=== PATIENT | female | born 1945 | race Caucasian/White ===

== ENCOUNTER 2024-01-18 14:09 | Outpatient (RCR) | payer MEDICARE, OTHER, SELFPAY | END 2024-01-18 23:59 | disposition home or self-care (01) | LOC: RPT 14:09 | PROVIDERS: ATTENDING PHYSICIAN Internal Medicine | DX: M54.50 Low back pain, unspecified (principal); R26.2 Difficulty in walking, not elsewhere classified; Z73.6 Limitation of activities due to disability; G62.9 Polyneuropathy, unspecified; M79.604 Pain in right leg; R26.89 Other abnormalities of gait and mobility; M62.81 Muscle weakness (generalized) | CPT/HCPCS: 97110; 97162 ==

== ENCOUNTER 2024-01-31 13:18 | Outpatient (RCR) | payer MEDICARE, OTHER, SELFPAY | END 2024-01-31 23:59 | disposition home or self-care (01) | LOC: RPT 13:18 | PROVIDERS: ATTENDING PHYSICIAN Internal Medicine | DX: M54.50 Low back pain, unspecified (principal); R26.2 Difficulty in walking, not elsewhere classified; Z73.6 Limitation of activities due to disability; G62.9 Polyneuropathy, unspecified; M79.604 Pain in right leg; R26.89 Other abnormalities of gait and mobility; M62.81 Muscle weakness (generalized) | CPT/HCPCS: 97110 ==

== ENCOUNTER → 2024-02-25 09:45 | Outpatient (REF) | payer MEDICARE, OTHER, SELFPAY ==
[2024-02-25 11:02] LABS: Hematocrit 40.9 % (37.0-47.0); Mean Corp Hgb Conc. 31.8 g/dL (33.0-37.0); Mean Corpuscular Hgb 27.8 pg (27.0-31.0); Mean Corpuscular Volume 87.4 fL (81.0-99.0); Mean Platelet Volume 10.7 fL (7.4-10.4); Platelet Count 180 10^3/uL (130-400); Red Blood Cell Count 4.68 10^6/uL (4.20-5.40); Red Cell Dist. Width 14.9 % (11.5-14.5); White Blood Cell Count 9.2 10^3/uL (4.8-10.8)
[2024-02-25 12:46] LABS: Blood Urea Nitrogen 22 mg/dl (7-17); Calcium 9.5 mg/dl (8.4-10.2); Carbon Dioxide 27 mmol/L (22-30); Chloride 102 mmol/L (98-107); Glucose 98 mg/dl (70-99); Potassium 4.6 mmol/L (3.5-5.1); Sodium 139 mmol/L (135-145); eGFR > 60.00
== END ==
LOC: SDSPAT 09:45
PROVIDERS: ATTENDING PHYSICIAN Obstetrics & Gynecology; FAMILY PHYSICIAN Internal Medicine
DX: Z01.818 Encounter for other preprocedural examination (principal)
CPT/HCPCS: 36415; 80048; 85027; 86850; 86900; 86901

== ENCOUNTER 2024-02-29 08:39 | Emergency (ER) | payer MEDICARE, OTHER, SELFPAY ==
[2024-02-29 08:54] VITALS: BP 123/95
[2024-02-29 09:17] LABS: % Basophils 0.4 % (0-2); % Eosinophils 1.1 % (0-6); % Immature Granulocytes 0.6 % (0-0.5); % Lymphocytes 19.1 % (20.5-51.1); % Monocytes 7.4 % (1.7-9.3); % Neutrophils 71.4 % (42.2-75.2); Absolute Eosinophils 0.1 10^3/uL (0-0.7); Absolute Immature Granulocytes 0.1 10^3/uL (0-0.05); Absolute Lymphocytes 1.9 10^3/uL (1.2-3.4); Absolute Monocytes 0.7 10^3/uL (0.1-0.6); Absolute Neutrophils 7.1 10^3/uL (1.4-6.5); Hematocrit 42.8 % (37.0-47.0); Mean Corp Hgb Conc. 32.7 g/dL (33.0-37.0); Mean Corpuscular Hgb 28.3 pg (27.0-31.0); Mean Corpuscular Volume 86.6 fL (81.0-99.0); Mean Platelet Volume 9.8 fL (7.4-10.4); Nucleated Red Blood Cells % 0 %; Platelet Count 180 10^3/uL (130-400); Red Blood Cell Count 4.94 10^6/uL (4.20-5.40); Red Cell Dist. Width 14.7 % (11.5-14.5); White Blood Cell Count 9.9 10^3/uL (4.8-10.8)
[2024-02-29 09:26] LABS: Urine Albumin Trace (Neg - Trace); Urine Bilirubin Negative (Negative); Urine Character Clear (Clear); Urine Color Yellow; Urine Glucose Negative (Negative); Urine Ketone Negative (Negative); Urine Leukocyte 2+ (Negative); Urine Nitrite Negative (Negative); Urine Occult Blood Negative (Negative); Urine Urobilinogen Negative (Neg - 1+)
[2024-02-29 09:34] LABS: ALT (SGPT) 13 U/L (0-35); AST (SGOT) 20 U/L (14-36); Albumin 4.2 g/dl (3.5-5.0); Alkaline Phosphatase 82 U/L (38-126); Blood Urea Nitrogen 20 mg/dl (7-17); Carbon Dioxide 30 mmol/L (22-30); Chloride 102 mmol/L (98-107); Glucose 101 mg/dl (70-99); Potassium 4.2 mmol/L (3.5-5.1); Sodium 140 mmol/L (135-145); Total Bilirubin 0.6 mg/dl (0.2-1.3); Total Protein 6.9 g/dl (6.3-8.2); eGFR > 60.00
[2024-02-29 09:47] LABS: Urine Mucus Moderate
[2024-02-29 09:48] LABS: Urine Squamous Cell 26-30 /LPF (Few)
[2024-02-29 09:49] LABS: Urine Bacteria Moderate (Negative); Urine White Cell 16-20 /HPF (0-5)
--- NOTE | 2024-02-29 10:18 | ED.GENMED ---
History of Present Illness
<Stephanie Perera PA-C - Last Filed: 02/29/24 17:08>
General
Chief Complaint: Urinary Symptoms
Source: patient
Exam Limitations: none
Time Seen by Provider: 02/29/24 10:17
Nursing documentation reviewed up to this point in time: agreed with
History of Present Illness
History of Present Illness:
78-year-old female past medical history of A-fib, diabetes, asthma, presents to the emergency department today with concerns of low back pain, burning with urination, and vaginal itching for the past 5 days. Patient states that she went to urgent
care was diagnosed with a UTI and Bactrim was sent to the pharmacy. Patient states that she is allergic to Bactrim and will get swelling and itching. 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
her that the medication was not ready. Patient went back again and they again and said that the medication was not ready. Patient today is hoping to get a new antibiotic as she has surgery scheduled for next week. Patient states that the back
pain have been without, and is seems to be worse with movement. Patient feels that around the flank area bilaterally. Patient denies any blood in her urine. Patient denies any history of kidney stones. Patient denies any fevers or chills.
Patient states that she did have nausea yesterday but no vomiting.
Past History
<Stephanie Perera PA-C - Last Filed: 02/29/24 17:08>
Past History
ED Past Medical History: Arrthythmia (Atrial fibrillation), Asthma, GERD (Hiatal hernia), Psychiatric and Other (Prior history of DVT/PE)
ED Past Surgical History: Gynecological (Hysterectomy, rectocele repair x2) and Other (Laparoscopic hiatal hernia repair February 2022)
Social History
Tobacco: Non-smoker
Alcohol: Occasional
Drug: None
Personal:
Living: with family
Employment: Retired
Family History
Family History: Other (Noncontributory)
Review of Systems
<Stephanie Perera PA-C - Last Filed: 02/29/24 17:08>
Review of Systems
All Other Systems: ROS reviewed and negative except as documented in HPI and ROS
Phy Exam
<Stephanie Perera PA-C - Last Filed: 02/29/24 17:08>
Physical Exam
Physical Exam:
General: Patient is well appearing and in no acute distress; non-toxic
Skin: Warm and dry, no rashes or lesions
Head: Normocephalic, atraumatic
Eyes: Sclera non-icteric. EOMs intact.
Cardiac: Regular rate and rhythm, no murmurs
Peripheral Vascular: No lower extremity swelling or edema
Pulm: Normal respiratory effort, no wheezes, rales, or rhonchi
Abdomen: No abdominal tenderness
Musculoskeletal: Bilateral flank tenderness to palpation, no midline spinal tenderness to palpation
Neuro: CN II-XII intact, no focal neurologic deficits.
Psychiatric: Appropriate mood and affect.
Course
<Stephanie Perera PA-C - Last Filed: 02/29/24 17:08>
Orders/Labs/Results
Orders:
Orders
02/29/24 09:06
Complete Blood Count/With Diff Urgent
Comprehensive Metabolic Panel Urgent
Urinalysis Reflex To Culture Urgent
Date Specimen was Collected: 02/29/24
Time Specimen was Collected: 08:57
Urine Microscopic Reflex Cult Urgent
Urine Culture Urgent
GEORGE Source: U
Specimen Description:
Date Specimen was Collected: 02/29/24
Time Specimen was Collected: 08:57
02/29/24 11:01
CT Abd/pel Without Iv Or Oral Urgent
Comment:
Reason For Exam: flank pain
02/29/24 11:24
Electrocardiogram (*1) Urgent
Reason for Study: QTc Monitoring
EKG- Treatment ONCE
Abnormal Lab Results
02/29/24
09:06
MCHC 32.7 L g/dL
(33.0-37.0)
RDW 14.7 H %
(11.5-14.5)
Abs Immat Gran (auto) 0.1 H 10^3/uL
(0-0.05)
Absolute Neuts (auto) 7.1 H 10^3/uL
(1.4-6.5)
Absolute Monos (auto) 0.7 H 10^3/uL
(0.1-0.6)
Immature Gran % 0.6 H %
(0-0.5)
Lymphocytes % 19.1 L %
(20.5-51.1)
BUN 20 H mg/dl
(7-17)
Glucose 101 H mg/dl
(70-99)
Leukocyte Esterase Rfl 2+ A
(Negative)
Urine RBC 11-15 A /HPF
(0-2)
Urine WBC (Reflex) 16-20 A /HPF
(0-5)
Urine Bacteria (Reflex) Moderate A
(Negative)
02/29/24 09:06
02/29/24 09:06
Vital Signs
Initial and Last Documented VS:
Initial Vital Signs
Temp Pulse Resp BP Pulse Ox
98.5 F 62 18 123/95 99
02/29/24 08:54 02/29/24 08:54 02/29/24 08:54 02/29/24 08:54 02/29/24 08:54
Last Documented Vital Signs
Temp Pulse Resp BP Pulse Ox
98.5 F 56 18 134/82 100
02/29/24 08:54 02/29/24 13:42 02/29/24 08:54 02/29/24 13:42 02/29/24 13:42
<Nydia Gallo MD - Last Filed: 02/29/24 11:26>
Orders/Labs/Results
Orders:
Orders
02/29/24 09:06
Complete Blood Count/With Diff Urgent
Comprehensive Metabolic Panel Urgent
Urinalysis Reflex To Culture Urgent
Date Specimen was Collected: 02/29/24
Time Specimen was Collected: 08:57
Urine Microscopic Reflex Cult Urgent
Urine Culture Urgent
GEORGE Source: U
Specimen Description:
Date Specimen was Collected: 02/29/24
Time Specimen was Collected: 08:57
02/29/24 11:01
CT Abd/pel Without Iv Or Oral Urgent
Comment:
Reason For Exam: flank pain
02/29/24 11:24
Electrocardiogram (*1) Urgent
Reason for Study: QTc Monitoring
EKG- Treatment ONCE
Abnormal Lab Results
02/29/24
09:06
MCHC 32.7 L g/dL
(33.0-37.0)
RDW 14.7 H %
(11.5-14.5)
Abs Immat Gran (auto) 0.1 H 10^3/uL
(0-0.05)
Absolute Neuts (auto) 7.1 H 10^3/uL
(1.4-6.5)
Absolute Monos (auto) 0.7 H 10^3/uL
(0.1-0.6)
Immature Gran % 0.6 H %
(0-0.5)
Lymphocytes % 19.1 L %
(20.5-51.1)
BUN 20 H mg/dl
(7-17)
Glucose 101 H mg/dl
(70-99)
Leukocyte Esterase Rfl 2+ A
(Negative)
Urine RBC 11-15 A /HPF
(0-2)
Urine WBC (Reflex) 16-20 A /HPF
(0-5)
Urine Bacteria (Reflex) Moderate A
(Negative)
02/29/24 09:06
02/29/24 09:06
Vital Signs
Initial and Last Documented VS:
Initial Vital Signs
Temp Pulse Resp BP Pulse Ox
98.5 F 62 18 123/95 99
02/29/24 08:54 02/29/24 08:54 02/29/24 08:54 02/29/24 08:54 02/29/24 08:54
Last Documented Vital Signs
Temp Pulse Resp BP Pulse Ox
98.5 F 56 18 134/82 100
02/29/24 08:54 02/29/24 13:42 02/29/24 08:54 02/29/24 13:42 02/29/24 13:42
<Stephanie Perera PA-C - Last Filed: 02/29/24 17:08>
MDM/Problems Addressed
Differential Diagnosis Includes:
see below
MDM/Problems Addressed:
NUMBER AND COMPLEXITY OF PROBLEMS ADDRESSED AT THE ENCOUNTER
� Chronic conditions affecting care: UTIs, asthma,
� Acute Exacerbation and/or Progression of Chronic Illness:
� Differential Diagnosis includes: Acute cystitis, pyelonephritis, musculoskeletal sprain/strain, nephrolithiasis
AMOUNT AND/OR COMPLEXITY OF DATA TO BE REVIEWED AND ANALYZED
� I performed an independent evaluation of and my interpretation is:
CT: Diffuse urinary bladder wall thickening and perivesicular inflammation with acute cystitis, 5 mm nonobstructing left intrarenal calculus, no evidence of perinephric stranding
Laboratory Studies: no leukocytosis, no kidney injury
Other:
� Review of other/old records: patient has scheduled physical therapy on 02/24/24 for low back pain; no hospital discharge summary to review
� Clinical information was obtained by an independent historian: n/a
� Prescriptions/Medications Considered but not given: none
� Further testing considered but not performed: n/a
RISK OF COMPLICATIONS AND/OR MORBIDITY OR MORTALITY OF PATIENT MANAGEMENT
� Social determinants of health affecting care: none
� Discussion with other providers: ER attending
� Escalation of care including admission/observation vs risk of discharge considered:
78-year-old female with a past medical history of asthma, recurrent UTIs presents emergency department today with concerns of burning with urination and lower back pain for the past 5 days. Patient states that she has allergies to a lot of
antibiotics. For Keflex, penicillin, Bactrim, streptomycin, she gets hives body rash difficulty breathing. She saw urgent care for her UTI symptoms she was diagnosed with a UTI and they had sent Bactrim to her pharmacy. Patient states that she
has tolerated Bactrim in the past with Benadryl. When she went to the pharmacy, the antibiotic was not ready for her. Patient is requesting new antibiotic. In light of patient's new back pain with the urinary symptoms, CAT scan was performed
which was negative for infected stone, negative for any signs of pyelonephritis. Patient is well-appearing on exam, has no abdominal tenderness, has minimal low back tenderness palpation. In light of patient's allergies, will start ciprofloxacin
according to EMRA antibiotic guide recommendations. EKG was checked first to ensure normal QT. Patient stable for discharge.
<Stephanie Perera PA-C - Last Filed: 02/29/24 17:08>
*Critical Care Note
Total Time (30-74mins, 75-104mins- exclusive of procedures): Not Applicable
ED Attending Note
<Stephanie Perera PA-C - Last Filed: 02/29/24 17:08>
-
Portions of this chart may have been created with voice recognition software.� Occasional wrong word or��sound alike� substitutions may have occurred due to the inherent limitations of voice recognition software.
<Nydia Galol MD - Last Filed: 02/29/24 11:26>
ED Attending Note
Patient seen and examined by attending physician: Yes
I performed the substantive portion of visit, reviewed & personally made and approve the management plan that is documented in note by myself or JIGNESH.: Yes
ED Attending Note:
Patient appears well nontoxic. Heart sounds regular lungs are clear. Abdomen is soft and nontender. Patient reports she gets itchy from Bactrim and penicillin. We will do an EKG and if the QT interval is normal, we will proceed with Cipro.
Given patient's back pain, we will do a plain CAT scan to rule out infected stone.
Discharge Plan
Departure
Patient Disposition: Home (Routine Discharge)
Date of Disposition: 02/29/24
Time of Disposition: 13:36
Patient with high blood pressure during this ER visit?: Yes
Condition: Good
Discharge Problem:
Urinary tract infection
Instructions: Urinary Tract Infection, Adult (DC), BLOOD PRESSURE
Prescriptions:
New
ciprofloxacin HCl 250 mg tablet
250 mg PO BID 3 Days Qty: 6 0RF
No Action
cetirizine [Zyrtec] 10 MG tablet
10 mg PO DAILY
propranolol 40 MG tablet
40 mg PO TID
paroxetine HCl [Paxil] 10 mg Tablet
10 mg PO DAILY
famotidine [Pepcid] 40 mg Tablet
40 mg PO .AFTERNOON & EVENING
lansoprazole [Prevacid] 30 mg Capsule,Delayed Release(Dr/Ec)
30 mg PO DAILY
fluticasone propionate [Flovent HFA] 44 mcg/actuation Hfa Aerosol Inhaler
1 puff INHALATION PRN PRN (Reason: sob)
Referrals:
Yousif Shi MD [Active] - Call in 1-3 days for appt
UNKNOWN - PT DOES,NOT KNOW [Family Provider] -
Activity Restrictions/Additional Instructions:
PLEASE RETURN TO THE EMERGENCY DEPARTMENT SHOULD YOU EXPERIENCE FEVERS OR CHILLS, ABDOMINAL PAIN, INTRACTABLE NAUSEA OR VOMITING, INCREASING PAIN, AND ACUTE WORSENING OR SYMPTOMS, OR ANY OTHER SIGNS OR SYMPTOMS CONCERNING TO YOU.
Please follow-up with your primary care provider in a week and repeat urinalysis to ensure the resolution of your symptoms. Please consider being evaluated by urologist for frequent UTIs.
Interventions
Interventions:
*Risk Screen - Suicide Last Done: 02/29/24 08:54
*General Assessment Last Done: 02/29/24 08:54
*Neglect/Abuse Screening Last Done: 02/29/24 08:54
*ED COVID-19 Vaccine History Last Done: 02/29/24 08:54
*Nursing Disposition Last Done: 02/29/24 13:44
ED-Female Genitourinary Assessment Last Done: 02/29/24 11:01
Discharge Date and Time
Discharge Date/Time: 02/29/24 14:06
Print Language: DOMINICAN
[2024-02-29 13:42] VITALS: BP 134/82
== END 2024-02-29 14:06 | disposition home or self-care (01) ==
LOC: EMR 08:39
PROVIDERS: EMERGENCY PHYSICIAN Emergency Medicine
DX: N39.0 Urinary tract infection, site not specified (principal); R11.0 Nausea; L29.9 Pruritus, unspecified; N20.0 Calculus of kidney; N30.00 Acute cystitis without hematuria; R03.0 Elevated blood-pressure reading, without diagnosis of hypertension; I48.91 Unspecified atrial fibrillation; E11.9 Type 2 diabetes mellitus without complications; J45.909 Unspecified asthma, uncomplicated; K21.9 Gastro-esophageal reflux disease without esophagitis; G47.30 Sleep apnea, unspecified; K52.9 Noninfective gastroenteritis and colitis, unspecified; M19.90 Unspecified osteoarthritis, unspecified site; F41.9 Anxiety disorder, unspecified; Z85.828 Personal history of other malignant neoplasm of skin; Z87.440 Personal history of urinary (tract) infections; Z86.711 Personal history of pulmonary embolism; Z86.718 Personal history of other venous thrombosis and embolism; Z88.1 Allergy status to other antibiotic agents; Z91.040 Latex allergy status; Z88.2 Allergy status to sulfonamides; Z88.8 Allergy status to other drugs, medicaments and biological substances; Z91.048 Other nonmedicinal substance allergy status
CPT/HCPCS: 99284; 74176; 80053; 81003; 81015; 85025; 87086; 93005

== ENCOUNTER 2024-03-06 06:45 | Day surgery (SDC) | payer MEDICARE, OTHER, SELFPAY ==
[2024-02-25 13:15] VITALS: BMI 40.3
--- NOTE | 2024-03-01 10:00 | PTCARENOTE ---
Abnormal urinalysis collected on 02/29/24 with C&S pending; Mary at 's office was notified.
[2024-03-06] VITALS (11 sets, daily range): BP systolic 106–124; BP diastolic 60–73
[2024-03-06 08:01] LABS: Glucose - Point of Care 92 mg/dl (70-99)
[2024-03-06] MEDS: NORMOSOL-R/PLASMALYTE-A 1000 IV (08:07)
[2024-03-06] MEDS: Pyridium 200 MG PO (08:31)
[2024-03-06 08:36] LABS: INR 0.95
[2024-03-06 08:37] LABS: APTT 27.8 Sec (23.4-35.0)
[2024-03-06] MEDS: HEPARIN 5000 UNITS SC (09:26)
== END 2024-03-06 15:30 | disposition home or self-care (01) ==
LOC: SDS 06:45
PROVIDERS: ATTENDING PHYSICIAN Obstetrics & Gynecology
DX: N99.3 Prolapse of vaginal vault after hysterectomy (principal); N39.3 Stress incontinence (female) (male); N36.41 Hypermobility of urethra; N32.81 Overactive bladder; Y83.8 Other surgical procedures as the cause of abnormal reaction of the patient, or of later complication, without mention of misadventure at the time of the procedure
CPT/HCPCS: 57283; 57120; 57250; 82962; 85610; 85730; 86900; 86901; J1580

== ENCOUNTER 2024-07-15 13:12 | Emergency (ER) | payer MEDICARE, OTHER, SELFPAY ==
[2024-07-15 13:18] VITALS: BP 138/83
--- NOTE | 2024-07-15 15:39 | ED.GENMED ---
History of Present Illness
General
Chief Complaint: Eye Problems
Source: patient
Exam Limitations: none
Time Seen by Provider: 07/15/24 14:40
History of Present Illness
History of Present Illness:
78-year-old female presents complaining of pain around the left eye that was preceded by blood showing up in the white part of her eye starting yesterday. She is on Eliquis. Several weeks ago she saw flashes of light out of the left eye but that
has since resolved and her vision is fine at this time. She denies loss of vision or blurry vision. No double vision. She was seen at an urgent care and sent here for further evaluation
Past History
Past History
ED Past Medical History: Arrthythmia (Atrial fibrillation), Asthma, GERD (Hiatal hernia), Psychiatric and Other (Prior history of DVT/PE)
ED Past Surgical History: Gynecological (Hysterectomy, rectocele repair ) and Other (Laparoscopic hiatal hernia repair February 2022)
Social History
Tobacco: Non-smoker
Alcohol: Occasional
Drug: None
Personal:
Living: with family
Employment: Retired
Family History
Family History: Other (Noncontributory)
Phy Exam
Physical Exam
Physical Exam:
General: Well-appearing female no acute respiratory distress
HEENT: Normocephalic atraumatic
Left eye examined. There is subconjunctival hemorrhage over the lateral aspect of the sclera. There is no hyphema. Pupil is round and reactive to light funduscopic exam is within normal limits. No obvious scleral abrasion however the pressures
were checked. Using the Dashawn-Pen, the average pressure measured 17 mmHg out of the left eye visual acuity noted on
Skin: Surrounding skin is without erythema
Course
Orders/Labs/Results
Orders:
Orders
07/15/24 15:02
CT Head W/o Iv Contrast Urgent
Comment:
Reason For Exam: headache
CT Orbits W/o Iv Contrast Urgent
Comment:
Reason For Exam: left eye pain
07/15/24 15:08
Fluorescein Sodium [Ful-Noelle] 4 mg .ROUTE .STK-MED ONE
Tetracaine HCl [Tetracaine 0.5% Ophthalmic Solution] 1 drop .ROUTE .STK-MED ONE
Vital Signs
Initial and Last Documented VS:
Initial Vital Signs
Temp Pulse Resp BP Pulse Ox
97.7 F 57 18 138/83 98
07/15/24 13:18 07/15/24 13:18 07/15/24 13:18 07/15/24 13:18 07/15/24 13:18
Last Documented Vital Signs
Temp Pulse Resp BP Pulse Ox
97.7 F 57 18 138/83 98
07/15/24 13:18 07/15/24 13:18 07/15/24 13:18 07/15/24 13:18 07/15/24 13:18
MDM/Problems Addressed
Differential Diagnosis Includes:
Left eye discomfort and redness. Consider subconjunctival hemorrhage versus abrasion. Patient is anticoagulated has a headache. Consider but less likely intracranial hemorrhage or retro-orbital hemorrhage. CT pending. No sign of glaucoma with
the workup today
*Critical Care Note
Total Time (30-74mins, 75-104mins- exclusive of procedures): Not Applicable
Update Note
Update Note:
CT of head and orbits negative for acute finding. Patient reassured. I suspect subconjunctival hemorrhage. No evidence of glaucoma. Advise rewetting drops. Stable for discharge
ED Attending Note
-
Portions of this chart may have been created with voice recognition software.� Occasional wrong word or��sound alike� substitutions may have occurred due to the inherent limitations of voice recognition software.
Discharge Plan
Departure
Patient Disposition: Home (Routine Discharge)
Date of Disposition: 07/15/24
Time of Disposition: 17:46
Patient with high blood pressure during this ER visit?: No
Discharge Problem:
Hx of subconjunctival hemorrhage
Prescriptions:
No Action
cetirizine [Zyrtec] 10 MG tablet
10 mg PO DAILY
propranolol 40 MG tablet
40 mg PO TID
paroxetine HCl [Paxil] 10 mg Tablet
10 mg PO DAILY
famotidine [Pepcid] 40 mg Tablet
40 mg PO .AFTERNOON & EVENING
lansoprazole [Prevacid] 30 mg Capsule,Delayed Release(Dr/Ec)
30 mg PO DAILY
fluticasone propionate [Flovent HFA] 44 mcg/actuation Hfa Aerosol Inhaler
1 puff INHALATION PRN PRN (Reason: sob)
Eliquis 5 mg Tablet
5 mg PO BID
ciprofloxacin HCl 250 mg tablet
250 mg PO BID 3 Days Qty: 6 0RF
Referrals:
Brittany Bai DO [Family Provider] -
Activity Restrictions/Additional Instructions:
Use rewetting drops if needed. Return if worse otherwise follow-up with your eye doctor
Interventions
Interventions:
*Risk Screen - Suicide Last Done: 07/15/24 13:18
*General Assessment Last Done: 07/15/24 13:18
*Neglect/Abuse Screening Last Done: 07/15/24 13:18
*ED COVID-19 Vaccine History Last Done: 07/15/24 13:18
Discharge Date and Time
Print Language: PRYDEINIG
== END 2024-07-15 18:10 | disposition home or self-care (01) ==
LOC: EMR 13:12
PROVIDERS: EMERGENCY PHYSICIAN Emergency Medicine; FAMILY PHYSICIAN Internal Medicine
DX: H11.32 Conjunctival hemorrhage, left eye (principal); I48.91 Unspecified atrial fibrillation; J45.909 Unspecified asthma, uncomplicated; Z79.01 Long term (current) use of anticoagulants; Z86.711 Personal history of pulmonary embolism; Z86.718 Personal history of other venous thrombosis and embolism; Z90.710 Acquired absence of both cervix and uterus
CPT/HCPCS: 99284; 70450; 70480